=== PATIENT | female | born 1980 | race Caucasian/White ===

== ENCOUNTER 2022-05-24 16:58 | Emergency (ER) | payer OTHER ==
[~2022-05-24 16:58] MED LIST: CLARITIN10 MG PO; IBU800 MG PO; LISINOPRIL10 MG PO; LOPRESSOR100 MG PO; PERCOCET 10-321 EACH PO; PHENERGAN 25 MG25 M1 PO; TOPAMAX25 MG PO; VALIUM5 MG PO
[2022-05-24 19:23] LABS: HEMOGLOBIN 12.4 gm/dl (12.3-15.3); RED BLOOD COUNT 4.22 M/UL (4.00-5.10); WHITE BLOOD COUNT 8.4 K/UL (4.5-11.0)
[2022-05-25] MEDS ORDERED: ZOFRAN 4 MG TAB4 MG PO (03:26)
== END 2022-05-25 03:56 | disposition home or self-care (01) ==
LOC: ER1 16:58
PROVIDERS: Emergency Medicine; Physician Assistant Medical
DX: M54.50 Low back pain, unspecified (principal); N17.9 Acute kidney failure, unspecified; I10 Essential (primary) hypertension; Z87.442 Personal history of urinary calculi
CPT/HCPCS: 80048; 80053; 81001; 83690; 84703; 85025; 96361; 96374; 99284; J0696